=== PATIENT | male | born 1950 | race Two or more races ===

== ENCOUNTER 2016-07-14 01:44 | Emergency (ER) | payer MEDICARE ==
[~2016-07-14] VITALS: Ht 172.7 cm; Wt 68.0 kg
[2016-07-14] MEDS ORDERED: IBUPROFEN 400 MG TABLET ONE (04:27)
[2016-07-14] MEDS ORDERED: IBUPROFEN 400 MG TABLET PO ONE (04:30)
[2016-07-14 05:07] VITALS: BP 139/82
== END 2016-07-14 04:25 | disposition home or self-care (01) ==
LOC: ER 01:46
DX: R19.7 Diarrhea, unspecified (principal)
CPT/HCPCS: A4606; Z7610